=== PATIENT | female | born 1955 | race Caucasian/White ===

== ENCOUNTER 2016-12-19 11:58 | Emergency (ER) | payer OTHER ==
[~2016-12-19] VITALS: Ht 154.9 cm; Wt 80.5 kg
[~2016-12-19 11:58] MED LIST: escitalopram; ibuprofen; loratadine
[2016-12-19 12:00] VITALS: Ht 154.9 cm; Wt 80.5 kg
[2016-12-19] MEDS ORDERED: AZITHROMYCIN 250 MG TAB PO ONE (13:00)
[2016-12-19] MEDS ORDERED: ACETAMINOPHEN 325 MG TAB PO ONE (13:00)
--- NOTE | 2016-12-19 13:11 | RADRPT ---
PROCEDURE: Chest x-ray CLINICAL INDICATION: Cough TECHNIQUE: Chest single view COMPARISON: None FINDINGS: The heart is normal in size. The pulmonary vessels are normal in caliber. The lungs are clear. Th e costophrenic angles are sharp. The visualized bony thorax is unremarkable. IMPRESSION: No acute cardiopulmonary disease. RPTAT: HH .Yohan Payne MD, Date Time Electronically viewed and signed by .Yohan Payne MD, MD on 12/19/2016 13:10 .W/
[2016-12-19] MEDS ORDERED: ACET325T33 PO (13:37)
[2016-12-19] MEDS ORDERED: IBUP-1542 PO (13:37)
[2016-12-19] MEDS ORDERED: LOPE2CAP PO (13:37)
[2016-12-19] MEDS ORDERED: AZIT250T94 PO (13:37)
--- NOTE | 2016-12-19 14:24 | ERD ---
ER Documentation Chief Complaint Date/Time DATE: 12/19/16 TIME: 14:23 Chief Complaint fever ,cough, diarrhea leg cramps since yesterday HPI Patient is a 61-year-old female with no medical problems who presents with fever and cough. The patient said that her symptoms started yesterday. She also has vomiting and diarrhea. She feels cramps in her legs on both sides. She has had no treatment as of yet. Upon review of old medical records this is the patient's first visit to the emergency department. She does not remember the name of her primary doctor. ROS All systems reviewed and are negative except as per history of present illness. Medications Home Meds Active Scripts Ibuprofen* (Motrin*) 600 Mg Tab, 600 MG PO Q8, #30 TAB Prov:ISHAAN RODNEY MD 12/19/16 Acetaminophen* (Tylenol*) 325 Mg Tablet, 2 TAB PO Q8 Y for PAIN AND OR ELEVATED TEMP, #20 TAB Prov:ISHAAN RODNEY MD 12/19/16 Loperamide Hcl* (Imodium*) 2 Mg Capsule, 2 MG PO .AFTER EA LOOSE BM Y for DIARRHEA, #10 TAB Prov:ISHAAN RODNEY MD 12/19/16 Azithromycin* (Zithromax*) 250 Mg Tablet, 250 MG PO DAILY for 4 Days, TAB Prov:ISHAAN RODNEY MD 12/19/16 Reported Medications [ibuprofen] No Conflict Check 07/11/16 [loratadine] No Conflict Check 07/11/16 [escitalopram] No Conflict Check 07/11/16 Allergies Allergies: Coded Allergies: No Known Allergy (Unverified , 07/11/16) PMhx/Soc Medical and Surgical Hx: pt denies Medical Hx, pt denies Surgical Hx History of Surgery: No Anesthesia Reaction: No Hx Neurological Disorder: No Hx Respiratory Disorders: No Hx Cardiac Disorders: No Hx Psychiatric Problems: No Hx Miscellaneous Medical Probl: No Hx Alcohol Use: No Hx Substance Use: No Hx Tobacco Use: No Smoking Status: Never smoker FmHx Family History: No diabetes Physical Exam Vitals Vital Signs Date Time Temp Pulse Resp B/P Pulse Ox O2 Delivery O2 Flow Rate FiO2 12/19/16 12:00 101.7 98 18 140/81 98 Physical Exam Const: Mild distress Head: Atraumatic Eyes: Normal Conjunctiva ENT: Normal External Ears, Nose and Mouth. Neck: Full range of motion..~ No meningismus. Resp: Clear to auscultation bilaterally Cardio: Regular rate and rhythm, no murmurs Abd: Soft, non tender, non distended. Normal bowel sounds Skin: No petechiae or rashes Back: No midline or flank tenderness Ext: No cyanosis, or edema Neur: Awake and alert Psych: Normal Mood and Affect Results 24 hrs Current Medications Medications (Trade) Dose Ordered Sig/Earle Route PRN Reason Start Time Stop Time Status Last Admin Dose Admin Azithromycin (Zithromax) 500 mg ONCE ONCE PO 12/19/16 13:00 12/19/16 13:01 DC 12/19/16 12:41 Acetaminophen (Tylenol Tab) 650 mg ONCE ONCE PO 12/19/16 13:00 12/19/16 13:01 DC 12/19/16 12:40 Procedures/MDM Chest x-ray shows no obvious pneumonia per radiology. Patient is a 61-year-old female with no medical problems who presents with fever and cough. She also has vomiting and diarrhea. I believe she may have an acute bronchitis and I will treat her with 5 days of Zithromax. The first dose was given in the emergency department. The patient was given Tylenol for fever. She is otherwise well-appearing and well-hydrated. I doubt sepsis or bacteremia at this time. Patient will be discharged home but will need to follow-up closely with her doctor within 24-48 hours. She can return sooner for any worsening symptoms. Departure Diagnosis: Primary Impression: Bronchitis Additional Impression: Vomiting and diarrhea Condition: Fair Patient Instructions: Self-Care for Vomiting and Diarrhea, Bronchitis, Antiobiotic Treatment (Adult) Referrals: Your doctor Additional Instructions: Llame al doctor MAANA y jewels linnea VIVI PARA DENTRO DE 1-2 CROCKER.Dgale a la secretaria que nosotros le instruimos hacer esta vivi.Avise o llame si fletcher condicin se empeora antes de la vivi. Regresa aqui si peor o no mejor. ISHAAN RODNEY MD December 19, 2016 14:24
[2016-12-20] MEDS ORDERED: LORA10TA3 PO (23:02)
== END 2016-12-19 14:15 | disposition home or self-care (01) ==
LOC: FTE 11:58
DX: J20.9 Acute bronchitis, unspecified (principal); R11.10 Vomiting, unspecified; R19.7 Diarrhea, unspecified
CPT/HCPCS: 71010; Z7502; Z7610

== ENCOUNTER 2016-12-20 20:36 | Emergency (ER) | payer OTHER ==
[~2016-12-20] VITALS: Ht 152.4 cm; Wt 81.5 kg
[~2016-12-20 20:36] MED LIST changes: +ACET325T33 PO; +AZIT250T94 PO; +IBUP-1542 PO; +LOPE2CAP PO
[2016-12-20 21:18] VITALS: Ht 152.4 cm; Wt 81.5 kg
[2016-12-20] MEDS ORDERED: ONDANSETRON 4 MG INJ IV STA (22:26)
[2016-12-20] MEDS ORDERED: morphine 4 MG/ML VIAL IV STA (22:26)
[2016-12-20] MEDS ORDERED: SODIUM CHLORIDE 0.9% 1L BAG IV* STA (22:26)
[2016-12-20] MEDS ORDERED: PIPER-TAZO 3.375 GM IV (PMX) 100 ML IVPB STA (22:26)
[2016-12-20] MEDS ORDERED: ALBUTEROL 0.083% (NEB) 2.5 MG/3 ML AMP NEB STA (22:37)
[2016-12-20 22:52] LABS: ADD SCAN DIFF NO
[2016-12-20 22:57] LABS: BASOPHILS % 0.5 % (0.0-2.0); EOSINOPHILS # 0.2 10^3/ul (0.0-0.5); EOSINOPHILS % 2.6 % (0.0-7.0); HEMATOCRIT 43.1 % (37.0-47.0); HEMOGLOBIN 14.3 g/dl (12.0-16.0); LYMPHOCYTES # 1.2 10^3/ul (0.8-2.9); LYMPHOCYTES % 14.7 % (15.0-51.0); MEAN CORPUSCULAR HEMOGLOBIN 32.1 pg (29.0-33.0); MEAN CORPUSCULAR HGB CONC 33.2 g/dl (32.0-37.0); MEAN CORPUSCULAR VOLUME 96.6 fl (82.0-101.0); MEAN PLATELET VOLUME 11.6 fl (7.4-10.4); MONOCYTE # 0.8 10^3/ul (0.3-0.9); NEUTROPHIL # 5.6 10^3/ul (1.6-7.5); NEUTROPHILS % 71.9 % (39.0-77.0); PLATELET COUNT 181 10^3/UL (140-415); RED BLOOD COUNT 4.46 10^6/ul (4.20-5.40); RED CELL DISTRIBUTION WIDTH 13.5 % (11.5-14.5); WHITE BLOOD COUNT 7.8 10^3/ul (4.8-10.8)
[2016-12-20] MEDS ORDERED: DEXAMETHASONE 10 MG/ML 1 ML INJ IV ONE (23:00)
[2016-12-20] MEDS ORDERED: LORA10TA3 PO (23:02)
[2016-12-20 23:08] LABS: ADD UMIC YES; URINE BILIRUBIN (Dip) NEGATIVE (NEGATIVE); URINE BLOOD (Dip) 2+ (NEGATIVE); URINE COLOR LT. YELLOW (YELLOW); URINE GLUCOSE (Dip) NEGATIVE (NEGATIVE); URINE KETONES (Dip) NEGATIVE (NEGATIVE); URINE LEUKOCYTE ESTERASE (Dip) NEGATIVE (NEGATIVE); URINE NITRITE (Dip) NEGATIVE (NEGATIVE); URINE TOTAL PROTEIN (Dip) NEGATIVE (NEGATIVE); URINE UROBILINOGEN (Dip) 0.2 E.U./dL (0.1-1.0)
[2016-12-20 23:16] LABS: BACTERIA,URINE FEW; SQUAMOUS EPITHELIAL CELL,UR FEW
[2016-12-20 23:18] LABS: INR 1.03; PARTIAL THROMBOPLASTIN TIME 29.3 Sec (25.0-35.0); PROTIME 13.5 Sec (12.2-14.2); PT RATIO 1.1
[2016-12-20 23:21] LABS: ALANINE AMINOTRANSFERASE 123 IU/L (13-69); ALBUMIN 4.5 g/dl (3.3-4.9); ALBUMIN/GLOBULIN RATIO 1.36; ALKALINE PHOSPHATASE 65 IU/L (42-121); ANION GAP 12 (8-16); ASPARTATE AMINO TRANSFERASE 131 IU/L (15-46); BILIRUBIN,INDIRECT 0.4 mg/dl (0-1.1); BILIRUBIN,TOTAL 0.4 mg/dl (0.2-1.3); BLOOD UREA NITROGEN 10 mg/dl (7-20); CALCIUM 8.6 mg/dl (8.4-10.2); CARBON DIOXIDE 24 mmol/L (21-31); CHLORIDE 101 mmol/L (97-110); CREATININE 0.78 mg/dl (0.44-1.00); GLUCOSE 118 mg/dl (70-220); POTASSIUM 4.8 mmol/L (3.5-5.1); SODIUM 132 mmol/L (135-144); TOTAL PROTEIN 7.8 g/dl (6.1-8.1)
--- NOTE | 2016-12-20 23:41 | RADRPT ---
PROCEDURE: XR Chest. CLINICAL INDICATION: Chest pain. TECHNIQUE: Single frontal chest x-ray. COMPARISON: 12/19/2016 FINDINGS: The cardiomediastinal silhouette is unremarkable. There is no congestive heart failure.. There is h ypoventilation with minimal bibasilar atelectasis.. There is no pleural effusion. There is no pneu mothorax. The osseous structures are unremarkable. IMPRESSION: Hypoventilation with minimal bibasilar atelectasis. RPTAT: HMVK .Chip Smith MD, Date Time Electronically viewed and signed by .Chip Smith MD, on 12/20/2016 23:40 .K/
[2016-12-20 23:43] LABS: TROPONIN-I < 0.012 ng/ml (0.00-0.12)
[2016-12-20] MEDS ORDERED: ACETAMINOPHEN 500 MG TAB PO STA (23:56)
[2016-12-21] MEDS ORDERED: ALBUTEROL 0.083% (NEB) 2.5 MG/3 ML AMP HHN STA (00:31)
--- NOTE | 2016-12-21 00:48 | RADRPT ---
PROCEDURE: US Abdomen (right upper quadrant). CLINICAL INDICATION: Right upper quadrant pain TECHNIQUE: Multiple real-time longitudinal and transverse images of the right upper quadrant of th e abdomen were acquired utilizing a curved array transducer. Images were reviewed on a high-resoluti on PACS workstation. COMPARISON: None FINDINGS: The liver is slightly enlarged at 17.2 cm and mildly echogenic without focal mass. The gallbladder is normal. There is no pericholecystic fluid or gallbladder wall thickening or gallstones. No intr a or extrahepatic biliary dilatation is seen. The common bile duct measures 3.5 mm in maximal dimen fabrice. Pancreas obscured by bowel gas. No free fluid is identified. The right kidney measures 11.6 cm in length. There is normal echogenicity within the right kidney. There is no perinephric fluid collection. No hydronephrosis, mass, or calculus is seen. IMPRESSION: 1. Slightly enlarged fatty liver. 2. Pancreas obscured by bowel gas. 3. Otherwise unremarkable right upper quadrant ultrasound. RPTAT: HMVK .Chip Smith MD, Date Time Electronically viewed and signed by .Chip Smith MD, MD on 12/21/2016 00:47 .K/
[2016-12-21] MEDS ORDERED: AZITHROMYCIN 500MG/NS (PMX) 250 ML IVPB ONE (01:00)
[2016-12-21] MEDS ORDERED: UDROBDM PO (01:04)
[2016-12-21] MEDS ORDERED: ALBU8.5H3 INH (01:04)
[2016-12-21] MEDS ORDERED: PRED50TA PO (01:04)
[2016-12-21] MEDS ORDERED: ACET500C5 PO (01:06)
[2016-12-21] MEDS ORDERED: LIDOCAINE/MYLANTA 40 ML BTL PO STA (01:07)
[2016-12-21] MEDS ORDERED: FAMOTIDINE 20 MG TAB PO STA (01:07)
[2016-12-21 03:05] VITALS: BP 96/58; PULSE 89; RESP 20; TEMP 99.1
--- NOTE | 2016-12-21 06:09 | ERD ---
ER Documentation Chief Complaint Date/Time DATE: 12/21/16 TIME: 06:04 Chief Complaint ap pain, fever and pain down RLE HPI 61-year-old female with no significant past medical history presenting with cough, body aches, fevers, chills with associated upper abdominal pain radiating down her legs. She states that abdominal pain started after using ibuprofen for her fever. Yesterday she was here in the ED for similar complaints and was diagnosed with bronchitis and prescribed azithromycin. She was also given medications for her nausea and diarrhea which have helped with those symptoms. She continues to have fevers and chills. She is taking the azithromycin. ROS All systems reviewed and are negative except as per history of present illness. Medications Home Meds Active Scripts Acetaminophen* (Tylophen*) 500 Mg Capsule, 1 CAP PO Q6H Y for FEVER, #20 CAP Prov:PEBBLES ALDRIDGE MD 12/21/16 Prednisone* (Prednisone*) 50 Mg Tablet, 50 MG PO DAILY for 5 Days, TAB Prov:PEBBLES ALDRIDGE MD 12/21/16 Guaifenesin-Dextromethorphan* (Robitussin* DM) 100MG/10MG/5ML Syrup, 5 ML PO Q4H Y for COUGH for 3 Days, #60 ML Prov:PEBBLES ALDRIDGE MD 12/21/16 Albuterol Sulfate* (Proair HFA*) 8.5 Gm Hfa.aer.ad, 2 PUFF INH Q4H Y for WHEEZING AND SOB, #1 INHALER Prov:PEBBLES ALDRIDGE MD 12/21/16 Ibuprofen* (Motrin*) 600 Mg Tab, 600 MG PO Q8, #30 TAB Prov:ISHAAN RODNEY MD 12/19/16 Loperamide Hcl* (Imodium*) 2 Mg Capsule, 2 MG PO .AFTER EA LOOSE BM Y for DIARRHEA, #10 TAB Prov:ISHAAN RODNEY MD 12/19/16 Reported Medications Loratadine* (Loratadine*) 10 Mg Tablet, 10 MG PO DAILY, #30 TAB 12/20/16 Discontinued Reported Medications [ibuprofen] No Conflict Check 07/11/16 [loratadine] No Conflict Check 07/11/16 [escitalopram] No Conflict Check 07/11/16 Discontinued Scripts Acetaminophen* (Tylenol*) 325 Mg Tablet, 2 TAB PO Q8 Y for PAIN AND OR ELEVATED TEMP, #20 TAB Prov:ISHAAN RODNEY MD 12/19/16 Azithromycin* (Zithromax*) 250 Mg Tablet, 250 MG PO DAILY for 4 Days, TAB Prov:ISHAAN RODNEY MD 12/19/16 Allergies Allergies: Coded Allergies: No Known Allergy (Unverified , 12/20/16) PMhx/Soc History of Surgery: No Anesthesia Reaction: No Hx Neurological Disorder: No Hx Respiratory Disorders: No Hx Cardiac Disorders: No Hx Psychiatric Problems: No Hx Miscellaneous Medical Probl: Yes (BRONCHITIS) Hx Alcohol Use: No Hx Substance Use: No Hx Tobacco Use: No Smoking Status: Never smoker FmHx Family History: No diabetes Physical Exam Vitals Vital Signs Date Time Temp Pulse Resp B/P Pulse Ox O2 Delivery O2 Flow Rate FiO2 12/21/16 03:05 99.1 89 20 96/58 96 Room Air 12/21/16 01:06 100.4 102 93/66 12/21/16 00:47 95 22 94 21 12/20/16 23:06 102.3 98 20 112/77 96 Room Air 12/20/16 22:59 Non Rebreather 12/20/16 22:55 94 20 95 21 12/20/16 21:18 100.8 110 20 100/66 96 Physical Exam Const: Sickly appearing, nontoxic, no distress, frequent coughing on exam Head: Atraumatic Eyes: Normal Conjunctiva ENT: Normal External Ears, Nose and Mouth. Neck: Full range of motion..~ No meningismus. No JVD Resp: Diffuse expiratory wheezing, no rales or rhonchi Cardio: Tachycardic with regular rhythm, no murmurs Abd: Soft, mild epigastric and right upper quadrant tenderness, no rebound or guarding, non distended. Normal bowel sounds Skin: No petechiae or rashes Back: No midline or flank tenderness Ext: No cyanosis, or edema Neur: Awake and alert and oriented 3, cranial nerves intact, strength and sensations intact in all 4 extremities Psych: Normal Mood and Affect Result Diagram: 12/20/16222912/20/162229 Results 24 hrs Laboratory Tests Test 12/20/16 22:30 White Blood Count 7.810^3/ul Red Blood Count 4.4610^6/ul Hemoglobin 14.3g/dl Hematocrit 43.1% Mean Corpuscular Volume 96.6fl Mean Corpuscular Hemoglobin 32.1pg Mean Corpuscular Hemoglobin Concent 33.2g/dl Red Cell Distribution Width 13.5% Platelet Count 67718^3/UL Mean Platelet Volume 11.6fl Neutrophils % 71.9% Lymphocytes % 14.7% Monocytes % 10.0% Eosinophils % 2.6% Basophils % 0.5% Nucleated Red Blood Cells % 0.0/100WBC Neutrophils # 5.610^3/ul Lymphocytes # 1.210^3/ul Monocytes # 0.810^3/ul Eosinophils # 0.210^3/ul Basophils # 0.010^3/ul Nucleated Red Blood Cells # 0.010^3/ul Prothrombin Time 13.5Sec Prothrombin Time Ratio 1.1 INR International Normalized Ratio 1.03 Activated Partial Thromboplast Time 29.3Sec Urine Color LT. YELLOW Urine Clarity CLEAR Urine pH 5.5 Urine Specific [place] 1.020 Urine Ketones NEGATIVE Urine Nitrite NEGATIVE Urine Bilirubin NEGATIVE Urine Urobilinogen 0.2 E.U./dL Urine Leukocyte Esterase NEGATIVE Urine Microscopic RBC 10-25/HPF Urine Microscopic WBC NONE SEEN/HPF Urine Squamous Epithelial Cells FEW Urine Bacteria FEW Urine Hemoglobin 2+ Urine Glucose NEGATIVE% Urine Total Protein NEGATIVE Sodium Level 132mmol/L Potassium Level 4.8mmol/L Chloride Level 101mmol/L Carbon Dioxide Level 24mmol/L Anion Gap 12 Blood Urea Nitrogen 10mg/dl Creatinine 0.78mg/dl Glucose Level 118mg/dl Lactic Acid Level 1.6mmol/L Calcium Level 8.6mg/dl Total Bilirubin 0.4mg/dl Direct Bilirubin 0.00mg/dl Indirect Bilirubin 0.4mg/dl Aspartate Amino Transf (AST/SGOT) 131IU/L Alanine Aminotransferase (ALT/SGPT) 123IU/L Alkaline Phosphatase 65IU/L Troponin I < 0.012ng/ml Total Protein 7.8g/dl Albumin 4.5g/dl Globulin 3.30g/dl Albumin/Globulin Ratio 1.36 Lipase 107U/L Current Medications Medications (Trade) Dose Ordered Sig/Earle Route PRN Reason Start Time Stop Time Status Last Admin Dose Admin Morphine Sulfate (morphine) 4 mg ONCE STAT IV 12/20/16 22:26 6/1/17 22:28 DC 12/20/16 22:45 Ondansetron HCl (Zofran Inj) 4 mg ONCE STAT IV 12/20/16 22:26 12/20/16 22:28 DC 12/20/16 22:44 Sodium Chloride 2530 ml 2,530 ml BOLUS OVER 2 HOURS STAT IV* 12/20/16 22:26 12/20/16 22:28 DC 12/20/16 22:46 Piperacillin Sod/ Tazobactam Sod (Zosyn 3.375gm/ 100 ml (Pmx)) 100 ml @ 200 mls/hr ONCE STAT IVPB 12/20/16 22:26 12/20/16 22:55 DC 12/20/16 22:45 Dexamethasone (Decadron) 10 mg ONCE ONCE IV 12/20/16 23:00 12/20/16 23:01 DC 12/20/16 22:44 Albuterol (Proventil 0.083% (Neb)) 5 mg ONCE STAT NEB 12/20/16 22:37 12/20/16 22:38 DC 12/20/16 22:56 Acetaminophen 1000 mg 1,000 mg ONCE STAT PO 12/20/16 23:56 12/20/16 23:57 DC 12/21/16 00:06 Azithromycin (Zithromax 500mg/ NS (Pmx)) 250 ml @ 250 mls/hr ONCE ONCE IVPB 12/21/16 01:00 12/21/16 01:59 DC 12/21/16 01:00 Albuterol (Proventil 0.083% (Neb)) 5 mg ONCE STAT HHN 12/21/16 00:31 12/21/16 00:32 DC 12/21/16 00:47 Famotidine (Pepcid) 20 mg ONCE STAT PO 12/21/16 01:07 12/21/16 01:09 DC 12/21/16 01:32 Miscellaneous Medication (Gi Cocktail (2)) 40 ml ONCE STAT PO 12/21/16 01:07 12/21/16 01:09 DC 12/21/16 01:32 Procedures/MDM EKG: Rate/Rhythm: Normal Sinus Rhythm QRS, ST, T-waves: No changes consistent w/ acute ischemia Impression: No evidence of ischemia or arrhythmia Labs: No significant abnormalities, lactate normal Blood cultures pending Chest x-ray shows no acute abnormalities MDM: Patient is presenting with coughing and wheezing consistent with bronchitis. Chest x-ray did not show evidence of pneumonia. I have a low suspicion for CHF. Vitals were notable for tachycardia and fever. Sepsis workup was started. 30 cc/kg of IV fluids was given. Azithromycin was given IV. She started to improve with multiple albuterol breathing treatments. A dose of steroids was given here IV. Her labs were notable for mild transaminitis, so right upper quadrant ultrasound was ordered and was normal without evidence of biliary obstruction or acute cholecystitis. With regard to her epigastric pain , this is likely secondary to NSAID induced gastritis. patient's symptoms improved and I believe she is stable for discharge at this time. I advised she continue to azithromycin and prescribed her Tylenol instead of ibuprofen for her fevers. I also gave her prescription for 5 days of prednisone and albuterol MDI to use as needed. Return precautions were given. She was advised to follow-up with her primary care doctor within the next 2 days. Departure Diagnosis: Primary Impression: Bronchitis with bronchospasm Condition: Stable Patient Instructions: Bronchitis, Antiobiotic Treatment (Adult) [facility]errals[facility] Usted se foley hecho un examen mdico de control que le indica que no est en linnea condicin que requiera tratamiento urgente en el Departamento de Emergencia. Un estudio ms profundo y el tratamiento de fletcher condicin pueden esperar sin ningn riesgo hasta que usted sea atendida/o en el consultorio de fletcher mdico o linnea cl luis daniel. Es responsabilidad suya arreglar linnea ilia para el seguimiento del phillip. MANEJO DE CONDICIONES NO URGENTES EN EL FUTURO 1) Si usted tiene un mdico de atencin primaria: Usted debera llamar a fletcher mdico de atencin primaria antes de venir al departamento de emergencia. Despus de las horas de consultorio, fletcher doctor o fletcher asociado/a est disponible por telfono. El mdico o enfermero de jeremie en el servicio telefnico puede asesorarle por andrew medio para atender el problema, o phillip contrario se puede programar linnea ilia. 2) Si usted no tiene un mdico de atencin primaria: Llame al mdico o clnica de referencia que aparece abajo ac las horas de consultorio para hacer linnea ilia para que le vean. CLINICAS: [facility] [phone] [id number] [facility] [phone] [facility] [phone] [facility]. [place] [id number] [phone] [facility]. [facility] [phone] [address] [facility] [phone] [address] Additional Instructions: Regrese a la ayo de emergencias si jose sintomas estan empeorando. Toña todo medicinas, incluyendo el antibiotico. No toña ibuprofina. Solamente toña acetaminophena para fiebres. PEBBLES ALDRIDGE MD Dec 21, 2016 06:09
== END 2016-12-21 03:10 | disposition home or self-care (01) ==
LOC: E/R 20:36
DX: J20.9 Acute bronchitis, unspecified (principal); R11.0 Nausea; R05 Cough
CPT/HCPCS: 71010; 76705; 80053; 81001; 83605; 83690; 84484; 85025; 85610; 85730; 87040; 87086; 94640; 94664; J0456; J1100; J2270; J2405; J2543; J7030; Z7610; 36415; 96374; 96375

== ENCOUNTER 2017-01-06 19:13 | Emergency (ER) | payer OTHER ==
[~2017-01-06] VITALS: Wt 81.0 kg
[~2017-01-06 19:13] MED LIST changes: -ACET325T33 PO; +ACET500C5 PO; +ALBU8.5H3 INH; -AZIT250T94 PO; +LORA10TA3 PO; +PRED50TA PO; +UDROBDM PO; -escitalopram; -ibuprofen; -loratadine
[2017-01-06] MEDS ORDERED: morphine 4 MG/ML VIAL IV STA (20:45)
[2017-01-06] MEDS ORDERED: ONDANSETRON 4 MG INJ IV STA (20:45)
[2017-01-06] MEDS ORDERED: SOD CHLORIDE 0.9% 500 ML IV STA (20:45)
--- NOTE | 2017-01-06 21:00 | RADRPT ---
PROCEDURE: XR Chest. CLINICAL INDICATION: Abdominal pain. TECHNIQUE: Single frontal view. COMPARISON: 12/20/2016. FINDINGS: The lungs are clear. The heart size is normal. There is no pleural effusion. There is no pneumothorax. IMPRESSION: 1. Normal chest radiograph. 2. No significant change from 12/20/2016. RPTAT: QQ .Suman Vaughan MD, MD Date Time Electronically viewed and signed by .Sumna Vaughan MD, MD on 01/06/2017 20:59 .R/
[2017-01-06 21:23] LABS: ADD SCAN DIFF NO
[2017-01-06 21:24] LABS: BASOPHIL # 0.1 10^3/ul (0.0-0.1); BASOPHILS % 0.8 % (0.0-2.0); EOSINOPHILS # 0.3 10^3/ul (0.0-0.5); EOSINOPHILS % 2.4 % (0.0-7.0); HEMATOCRIT 39.3 % (37.0-47.0); HEMOGLOBIN 13.6 g/dl (12.0-16.0); MEAN CORPUSCULAR HEMOGLOBIN 33.3 pg (29.0-33.0); MEAN CORPUSCULAR HGB CONC 34.6 g/dl (32.0-37.0); MEAN CORPUSCULAR VOLUME 96.1 fl (82.0-101.0); MEAN PLATELET VOLUME 9.8 fl (7.4-10.4); MONOCYTE # 0.9 10^3/ul (0.3-0.9); NEUTROPHIL # 6.2 10^3/ul (1.6-7.5); NEUTROPHILS % 58.4 % (39.0-77.0); PLATELET COUNT 338 10^3/UL (140-415); RED BLOOD COUNT 4.09 10^6/ul (4.20-5.40); WHITE BLOOD COUNT 10.5 10^3/ul (4.8-10.8)
[2017-01-06 21:27] LABS: ADD UMIC YES; UR BILIRUBIN (Dip) NEGATIVE (NEGATIVE); UR BLOOD (Dip) TRACE (NEGATIVE); UR CLARITY CLEAR (CLEAR); UR COLOR LT. YELLOW (YELLOW); UR GLUCOSE (Dip) NEGATIVE (NEGATIVE); UR KETONES (Dip) NEGATIVE (NEGATIVE); UR LEUKOCYTE ESTERASE (Dip) NEGATIVE (NEGATIVE); UR NITRITE (Dip) NEGATIVE (NEGATIVE); UR TOTAL PROTEIN (Dip) NEGATIVE (NEGATIVE); UR UROBILINOGEN (Dip) 0.2 E.U./dL (0.1-1.0)
[2017-01-06] MEDS ORDERED: HYDROCODONE/HOMATROPINE 5ML CUP PO SCH (21:30)
[2017-01-06 21:41] LABS: URINE RBCS 0-2 /HPF (0)
[2017-01-06 21:54] LABS: ALANINE AMINOTRANSFERASE 60 IU/L (13-69); ALBUMIN 4.3 g/dl (3.3-4.9); ALBUMIN/GLOBULIN RATIO 1.59; ALKALINE PHOSPHATASE 83 IU/L (42-121); ANION GAP 12 (8-16); ASPARTATE AMINO TRANSFERASE 48 IU/L (15-46); BILIRUBIN,INDIRECT 0.3 mg/dl (0-1.1); BILIRUBIN,TOTAL 0.3 mg/dl (0.2-1.3); BLOOD UREA NITROGEN 8 mg/dl (7-20); CALCIUM 9.2 mg/dl (8.4-10.2); CARBON DIOXIDE 20 mmol/L (21-31); CHLORIDE 110 mmol/L (97-110); CREATININE 0.74 mg/dl (0.44-1.00); GLUCOSE 87 mg/dl (70-220); POTASSIUM 4.2 mmol/L (3.5-5.1); SODIUM 138 mmol/L (135-144)
--- NOTE | 2017-01-06 21:57 | RADRPT ---
PROCEDURE: CT abdomen and pelvis without intravenous contrast. CLINICAL INDICATION: Pain. TECHNIQUE: CT of the abdomen/pelvis was performed utilizing axial images with reconstructions in s agittal and coronal planes. The administered radiation dose is CTDI 17 mGy, DLP 965 mGy-cm. COMPARISON: No pertinent prior examinations were submitted for comparison. FINDINGS: Visualized Chest: The visualized lung bases are clear. Abdomen: The spleen, pancreas, gallbladder,and adrenal glands are unremarkable. The liver is markedly, dif fusely decreased in attenuation, compatible with hepatic steatosis. There is some motion artifact wh ich limits evaluation of the mid abdomen. The kidneys are without hydronephrosis. No definite urinary calculi are seen. There is no evidence of bowel obstruction. The appendix is normal. No intra-abdominal free air is seen. There is no evidence of intra-abdominal adenopathy or free fluid. Pelvis: There is a calcified fibroid within the uterine fundus on the right. The ovaries are not seen. The re is no pelvic adenopathy or free fluid. The urinary bladder is unremarkable. Osseous structures: Unremarkable. IMPRESSION: No acute findings. Marked hepatic steatosis. Uterine fibroid. RPTAT: HIKT .Juliocesar Servin MD, MD Date Time Electronically viewed and signed by .Juliocesar Servin MD, on 01/06/2017 21:57 .T/
[2017-01-06 22:13] VITALS: BP 107/74; PULSE 74; RESP 18
[2017-01-06 22:13] LABS: TROPONIN-I < 0.012 ng/ml (0.00-0.12)
--- NOTE | 2017-01-06 22:28 | ERD ---
ER Documentation Chief Complaint Date/Time DATE: 01/06/17 TIME: 22:26 Chief Complaint abdominal pain/vomiting/diarrhea x 2 weeks HPI There is a 61-year-old female comes in with complaints of cough abdominal pain vomiting and diarrhea for 2 weeks patient says started initially with a cough which is mildly productive of yellow sputum. Since then she developed abdominal pain that is mild in intensity but is associated with 2-3 episodes of loose stool per day. No blood in stool. Mild vomiting, only noted after severe posttussive episode. No fevers no chills. Nonbilious vomiting. No other current complaints. No sick contacts. ROS All systems reviewed and are negative except as per history of present illness. Medications Home Meds Active Scripts Acetaminophen* (Tylophen*) 500 Mg Capsule, 1 CAP PO Q6H Y for FEVER, #20 CAP Prov:PEBBLES ALDRIDGE MD 12/21/16 Prednisone* (Prednisone*) 50 Mg Tablet, 50 MG PO DAILY for 5 Days, TAB Prov:PEBBLES ALDRIDGE MD 12/21/16 Guaifenesin-Dextromethorphan* (Robitussin* DM) 100MG/10MG/5ML Syrup, 5 ML PO Q4H Y for COUGH for 3 Days, #60 ML Prov:PEBBLES ALDRIDGE MD 12/21/16 Albuterol Sulfate* (Proair HFA*) 8.5 Gm Hfa.aer.ad, 2 PUFF INH Q4H Y for WHEEZING AND SOB, #1 INHALER Prov:PEBBLES ALDRIDGE MD 12/21/16 Ibuprofen* (Motrin*) 600 Mg Tab, 600 MG PO Q8, #30 TAB Prov:ISHAAN RODNEY MD 12/19/16 Loperamide Hcl* (Imodium*) 2 Mg Capsule, 2 MG PO .AFTER EA LOOSE BM Y for DIARRHEA, #10 TAB Prov:ISHAAN RODNEY MD 12/19/16 Reported Medications Loratadine* (Loratadine*) 10 Mg Tablet, 10 MG PO DAILY, #30 TAB 12/20/16 Allergies Allergies: Coded Allergies: No Known Allergy (Unverified , 01/06/17) PMhx/Soc History of Surgery: No Anesthesia Reaction: No Hx Neurological Disorder: No Hx Respiratory Disorders: Yes (asthma,bronchitis) Hx Cardiac Disorders: No Hx Psychiatric Problems: No Hx Miscellaneous Medical Probl: No Hx Alcohol Use: No Hx Substance Use: No Hx Tobacco Use: No Smoking Status: Never smoker Physical Exam Vitals Vital Signs Date Time Temp Pulse Resp B/P Pulse Ox O2 Delivery O2 Flow Rate FiO2 01/06/17 22:13 74 18 107/74 99 Room Air 01/06/17 19:17 98.6 82 20 129/75 100 Physical Exam Const: [] Head: Atraumatic Eyes: Normal Conjunctiva ENT: Normal External Ears, Nose and Mouth. Neck: Full range of motion..~ No meningismus. Resp: Clear to auscultation bilaterally Cardio: Regular rate and rhythm, no murmurs Abd: Soft, non tender, non distended. Normal bowel sounds Skin: No petechiae or rashes Back: No midline or flank tenderness Ext: No cyanosis, or edema Neur: Awake and alert Psych: Normal Mood and Affect Result Diagram: 01/06/17 2100 01/06/17 2100 Results 24 hrs Laboratory Tests Test 01/06/17 20:30 01/06/17 21:00 Urine Color LT. YELLOW Urine Clarity CLEAR Urine pH 5.5 Urine Specific [place] <=1.005 Urine Ketones NEGATIVE Urine Nitrite NEGATIVE Urine Bilirubin NEGATIVE Urine Urobilinogen 0.2 E.U./dL Urine Leukocyte Esterase NEGATIVE Urine Microscopic RBC 0-2/HPF Urine Microscopic WBC 0-2/HPF Urine Epithelial Cells RARE Urine Hemoglobin TRACE Urine Glucose NEGATIVE% Urine Total Protein NEGATIVE White Blood Count 10.510^3/ul Red Blood Count 4.0910^6/ul Hemoglobin 13.6g/dl Hematocrit 39.3% Mean Corpuscular Volume 96.1fl Mean Corpuscular Hemoglobin 33.3pg Mean Corpuscular Hemoglobin Concent 34.6g/dl Red Cell Distribution Width 13.0% Platelet Count 70045^3/UL Mean Platelet Volume 9.8fl Neutrophils % 58.4% Lymphocytes % 29.0% Monocytes % 9.0% Eosinophils % 2.4% Basophils % 0.8% Nucleated Red Blood Cells % 0.0/100WBC Neutrophils # 6.210^3/ul Lymphocytes # 3.010^3/ul Monocytes # 0.910^3/ul Eosinophils # 0.310^3/ul Basophils # 0.110^3/ul Nucleated Red Blood Cells # 0.010^3/ul Sodium Level 138mmol/L Potassium Level 4.2mmol/L Chloride Level 110mmol/L Carbon Dioxide Level 20mmol/L Anion Gap 12 Blood Urea Nitrogen 8mg/dl Creatinine 0.74mg/dl Glucose Level 87mg/dl Lactic Acid Level 1.0mmol/L Calcium Level 9.2mg/dl Total Bilirubin 0.3mg/dl Direct Bilirubin 0.00mg/dl Indirect Bilirubin 0.3mg/dl Aspartate Amino Transf (AST/SGOT) 48IU/L Alanine Aminotransferase (ALT/SGPT) 60IU/L Alkaline Phosphatase 83IU/L Troponin I < 0.012ng/ml Total Protein 7.0g/dl Albumin 4.3g/dl Globulin 2.70g/dl Albumin/Globulin Ratio 1.59 Lipase 185U/L Current Medications Medications (Trade) Dose Ordered Sig/Earle Route PRN Reason Start Time Stop Time Status Last Admin Dose Admin Sodium Chloride (NS) 500 ml @ 500 mls/hr Q1H STAT IV 01/06/17 20:45 01/06/17 21:44 DC 01/06/17 21:28 Morphine Sulfate (morphine) 4 mg ONCE STAT IV 01/06/17 20:45 01/06/17 20:46 DC 01/06/17 21:28 Ondansetron HCl (Zofran Inj) 4 mg ONCE STAT IV 01/06/17 20:45 01/06/17 20:46 DC 01/06/17 21:27 Hydrocodone Bit/ Homatropine Methylb (Hycodan Liquid) 5 ml ONCE PO 01/06/17 21:30 01/06/17 23:59 01/06/17 21:23 Procedures/MDM EKG: Rate/Rhythm: [Normal Sinus Rhythm] QRS, ST, T-waves: [No changes consistent w/ acute ischemia] Impression: [No evidence of ischemia or arrhythmia] Chest X-ray 1V Interpreted by me: Soft Tissue: No acute abnormalities Bones: No acute abnormalities Mediastinum/Cardiac Silhouette/Lungs: [No acute abnormalities] Medical decision-making: Patient is symptomology consistent with acute bronchitis. Abdominal CT is negative along with serial negative abdominal exams. At this point clinically stable for outpatient management. Patient will be discharged home. Follow with PCP. Follow-up in 8 hours for serial abdominal exams. Discharge home with azithromycin, prednisone, albuterol Departure Diagnosis: Primary Impression: Bronchitis Additional Impression: Abdominal pain Abdominal location: generalized Qualified Code: R10.84 - Generalized abdominal pain Condition: Stable NASEEM DAVISON Jan 06, 2017 22:28
[2017-01-06] MEDS ORDERED: ALBU18HF INHALATION (22:32)
[2017-01-06] MEDS ORDERED: PRED20TA PO (22:32)
[2017-01-06] MEDS ORDERED: AZIT250T94 PO (22:32)
== END 2017-01-06 22:45 | disposition home or self-care (01) ==
LOC: FTE 19:13 → E/R 22:45
DX: J20.9 Acute bronchitis, unspecified (principal); R11.10 Vomiting, unspecified; R40.2142 Coma scale, eyes open, spontaneous, at arrival to emergency department; R40.2252 Coma scale, best verbal response, oriented, at arrival to emergency department; R40.2362 Coma scale, best motor response, obeys commands, at arrival to emergency department; R10.84 Generalized abdominal pain
CPT/HCPCS: 36415; 71010; 74176; 80053; 81001; 83605; 83690; 84484; 85025; 93005; 96374; 96375; J2270; J2405; J7040; Z7502; Z7610

== ENCOUNTER 2017-02-22 18:29 | Emergency (ER) | payer OTHER ==
[~2017-02-22] VITALS: Ht 157.5 cm; Wt 80.0 kg
[~2017-02-22 18:29] MED LIST changes: +ALBU18HF INHALATION; +AZIT250T94 PO; +PRED20TA PO
[2017-02-22 18:59] VITALS: Ht 157.5 cm; Wt 80.0 kg
[2017-02-22] MEDS ORDERED: FAMOTIDINE 20 MG TAB PO ONE (20:00)
[2017-02-22] MEDS ORDERED: IBUPROFEN 600 MG TAB PO ONE (20:00)
--- NOTE | 2017-02-22 20:55 | RADRPT ---
PROCEDURE: XR Chest. CLINICAL INDICATION: Cough. TECHNIQUE: Single frontal view of the chest. COMPARISON: 12/19/2016. FINDINGS: Mild prominent cardiac silhouette. Mild elevation right hemidiaphragm. Mild pulmonary vascular con gestion is new. Slight atelectasis versus airspace disease at the left lung base. No signs of pleur al fluid or pneumothorax are seen. The osseous structures and soft tissues are unremarkable. IMPRESSION: Mild pulmonary vascular ingestion with slight atelectasis versus airspace disease at the left lung b ase. RPTAT: [facility] Physician Gavin Date Time Electronically viewed and signed by Physician Gavin on 02/22/2017 20:55 RS/
[2017-02-22] MEDS ORDERED: CEFTRIAXONE 1 GM INJ IM ONE (21:30)
[2017-02-22] MEDS ORDERED: LIDOCAINE 2% (MDV) 20 ML INJ INJ ONE (21:30)
[2017-02-22] MEDS ORDERED: OMEP20CA16 PO (21:32)
[2017-02-22] MEDS ORDERED: AZIT250T94 PO (21:32)
[2017-02-22] MEDS ORDERED: FEXO180T61 PO (21:33)
--- NOTE | 2017-02-22 22:00 | ERD ---
ER Documentation Chief Complaint Date/Time DATE: 02/22/17 TIME: 21:55 Chief Complaint cough, sore throat, left rib pain, back pain HPI This is a 61-year-old female presents to the ER with multiple complaints. Patient states that over the last 2 months she has had a cough that is now began to become productive. Patient states that she feels chest pain and shortness of breath whenever she is coughing. Patient also complaining of upper back pain while coughing. Patient also complains of headache that is throbbing in quality and worse when she coughs. She admits to fever. Patient denies any hemoptysis. Patient was diagnosed with bronchitis in the past, however she states she never got better. Patient has a past medical history of GERD, however does not take any medication. ROS 12 point review of systems was done, all negative except per HPI. Medications Home Meds Active Scripts Fexofenadine Hcl* (Ayleen*) 180 Mg Tablet, 180 MG PO DAILY, #30 TAB Prov:NIKI GARCIA 02/22/17 Omeprazole* (Omeprazole*) 20 Mg Capsule.dr, 20 MG PO BID, #20 Prov:NIKI GARCIA 02/22/17 Azithromycin* (Zithromax*) 250 Mg Tablet, 250 MG PO .ZPACK DIRECTED, #6 TAB TAKE 500 MG (2 TABS) THE FIRST DAY THEN 250 MG (1 TAB) DAYS 2-5 Prov:NIKI GARCIA 02/22/17 Albuterol Sulfate* (Ventolin HFA*) 18 Gm Hfa.aer.ad, 2 PUFF INHALATION Q4H, #1 INHALER Prov:NASEEM DAVISON 01/06/17 Prednisone* (Prednisone*) 20 Mg Tab, 40 MG PO DAILY for 4 Days, TAB Prov:NASEEM DAVISON 01/06/17 Azithromycin* (Zithromax*) 250 Mg Tablet, 250 MG PO .ZPACK DIRECTED, #6 TAB TAKE 500 MG (2 TABS) THE FIRST DAY THEN 250 MG (1 TAB) DAYS 2-5 Prov:NASEEM DAVISON 01/06/17 Acetaminophen* (Tylophen*) 500 Mg Capsule, 1 CAP PO Q6H Y for FEVER, #20 CAP Prov:PEBBLES ALDRIDGE MD 12/21/16 Prednisone* (Prednisone*) 50 Mg Tablet, 50 MG PO DAILY for 5 Days, TAB Prov:PEBBLES ALDRIDGE MD 12/21/16 Guaifenesin-Dextromethorphan* (Robitussin* DM) 100MG/10MG/5ML Syrup, 5 ML PO Q4H Y for COUGH for 3 Days, #60 ML Prov:PEBBLES ALDRIDGE MD 12/21/16 Albuterol Sulfate* (Proair HFA*) 8.5 Gm Hfa.aer.ad, 2 PUFF INH Q4H Y for WHEEZING AND SOB, #1 INHALER Prov:PEBBLES ALDRIDGE MD 12/21/16 Ibuprofen* (Motrin*) 600 Mg Tab, 600 MG PO Q8, #30 TAB Prov:ISHAAN RODNEY MD 12/19/16 Loperamide Hcl* (Imodium*) 2 Mg Capsule, 2 MG PO .AFTER EA LOOSE BM Y for DIARRHEA, #10 TAB Prov:ISHAAN RODNEY MD 12/19/16 Reported Medications Loratadine* (Loratadine*) 10 Mg Tablet, 10 MG PO DAILY, #30 TAB 12/20/16 Allergies Allergies: Coded Allergies: No Known Allergy (Unverified , 02/22/17) PMhx/Soc Medical and Surgical Hx: pt denies Surgical Hx History of Surgery: No Anesthesia Reaction: No Hx Neurological Disorder: No Hx Respiratory Disorders: Yes (asthma,bronchitis) Hx Cardiac Disorders: No Hx Psychiatric Problems: No Hx Miscellaneous Medical Probl: No Hx Alcohol Use: No Hx Substance Use: No Hx Tobacco Use: No Smoking Status: Never smoker Physical Exam Vitals Vital Signs Date Time Temp Pulse Resp B/P Pulse Ox O2 Delivery O2 Flow Rate FiO2 02/22/17 18:59 97.8 86 20 143/88 99 Physical Exam GENERAL: The patient is well-developed, well-nourished, in no acute distress. NECK: Cervical spine is non tender with no step off. Supple, no nuchal rigidity HEENT: Atraumatic. Pupils equal, round and reactive to light. Extraocular muscles are grossly intact. Conjunctivae pink, no discharge. Bilateral tympanic membranes are clear with no evidence of erythema, effusion or dulling of the light reflex. Tonsilar erythema with no exudates or uvular deviation. Clear rhinorrhea. RESPIRATORY: Clear to auscultation bilaterally. There are no rales, wheezes or rhonchi. HEART: Regular rate and rhythm. No murmurs, clicks, rubs or gallops. EXTREMITIES: No clubbing or cyanosis. Full range of motion. Grossly neurovascularly intact. NEUROLOGIC: Alert and oriented. Cranial nerves II through XII are intact. SKIN: There is no rash. The skin is warm and dry. Results 24 hrs Current Medications Medications (Trade) Dose Ordered Sig/Earle Route PRN Reason Start Time Stop Time Status Last Admin Dose Admin Ibuprofen (Motrin) 600 mg ONCE ONCE PO 02/22/17 20:00 02/22/17 20:01 DC 02/22/17 20:18 Famotidine (Pepcid) 20 mg ONCE ONCE PO 02/22/17 20:00 02/22/17 20:01 DC 02/22/17 20:18 Ceftriaxone Sodium (Rocephin) 1 gm ONCE ONCE IM 02/22/17 21:30 02/22/17 21:31 DC 02/22/17 21:23 Lidocaine (Xylocaine 2% (Mdv) 20 ml) 20 ml ONCE ONCE INJ 02/22/17 21:30 02/22/17 21:31 DC 02/22/17 21:23 [place] [id number] Rad[address] Main Line: [phone] DIAGNOSTIC IMAGING REPORT Patient: ALTAGRACIA REED : 1955 Age: 61 Sex: F MR #: [id number] DOS: 02/22/17 0000 Ordering MD: NIKI GARCIA PA-C Location: [facility] Room/Bed: PROCEDURE: XR Chest. CLINICAL INDICATION: Cough. TECHNIQUE: Single frontal view of the chest. COMPARISON: 12/19/2016. FINDINGS: Mild prominent cardiac silhouette. Mild elevation right hemidiaphragm. Mild pulmonary vascular congestion is new. Slight atelectasis versus airspace disease at the left lung base. No signs of pleural fluid or pneumothorax are seen. The osseous structures and soft tissues are unremarkable. IMPRESSION: Mild pulmonary vascular ingestion with slight atelectasis versus airspace disease at the left lung base. RPTAT: [facility] Physician Gavin Date Time Electronically viewed and signed by Kg Martinez Physician on 02/22/2017 20:55 RS/ CC: NIKI GARCIA Procedures/MDM EKG 75bpm no ST elevation no t wave inversion. EKG was read by Dr. Ayala Differential diagnosis includes but is not limited to; Viral URI, allergic rhinitis, bronchitis, pertussis,pneumonia. Patient has been to the ER 2 different times for this cough, and there was some evidence of probable disease in the lung. Patient was given a shot of Rocephin without any complications. She will be sent home with azithromycin, Ayleen, omeprazole. Suspicion for acute myocardial infarction is low as EKG is normal and patient's chest pain is associated with her cough, patient has also had these symptoms for the last 2 months. Patient is to follow-up with her primary care doctor and see a printed circuit board layout designer as soon as possible for further imaging and testing. Plan was discussed with patient they understand and agree. Patient needs to follow up with PCP in 1-2 days or return to ER sooner if symptoms worsen. Departure Diagnosis: Primary Impression: Cough Condition: Stable Patient Instructions: Cough, Chronic, Uncertain Cause, (Adult) Additional Instructions: Call your primary care doctor TOMORROW for an appointment during the next 1-2 days.See the doctor sooner or return here if your condition worsens before your appointment time. NIKI GARCIA Feb 22, 2017 22:00
== END 2017-02-22 21:44 | disposition home or self-care (01) ==
LOC: FTE 18:29
DX: R05 Cough (principal); J45.909 Unspecified asthma, uncomplicated; R07.9 Chest pain, unspecified
CPT/HCPCS: 71010; 93005; 96372; J0696; Z7502; Z7610

== ENCOUNTER 2017-05-27 15:35 | Emergency (ER) | payer OTHER ==
[~2017-05-27] VITALS: Ht 154.9 cm; Wt 83.0 kg
[~2017-05-27 15:35] MED LIST changes: +FEXO180T61 PO; +OMEP20CA16 PO
[2017-05-27 15:39] VITALS: Ht 154.9 cm; Wt 83.0 kg
--- NOTE | 2017-05-27 19:14 | ERD ---
ER Documentation Chief Complaint Chief Complaint RT EYE SWELLING /PAIN SINCE SATURDAY HPI This patient is a 61-year-old nondiabetic female who presents with bilateral periorbital swelling worse on the right side that she has had for 3 days. She has had this problem in the past before and is resolved on its own. She also has URI symptoms including cough and congestion. She saw her primary care doctor who told her to come to the emergency room to make sure she does not have glaucoma. She wears glasses but she does not have the glasses here today. She denies any visual changes and states her vision is the same in both eyes as normal. No nausea or vomiting. ROS All systems reviewed and are negative except as per history of present illness. Medications Home Meds Active Scripts Fexofenadine Hcl* (Ayleen*) 180 Mg Tablet, 180 MG PO DAILY, #30 TAB Prov:NIKI GARCIA 02/22/17 Omeprazole* (Omeprazole*) 20 Mg Capsule.dr, 20 MG PO BID, #20 Prov:NIKI GARCIA 02/22/17 Azithromycin* (Zithromax*) 250 Mg Tablet, 250 MG PO .ZPACK DIRECTED, #6 TAB TAKE 500 MG (2 TABS) THE FIRST DAY THEN 250 MG (1 TAB) DAYS 2-5 Prov:NIKI GARCIA 02/22/17 Albuterol Sulfate* (Ventolin HFA*) 18 Gm Hfa.aer.ad, 2 PUFF INHALATION Q4H, #1 INHALER Prov:NASEEM DAVISON 01/06/17 Prednisone* (Prednisone*) 20 Mg Tab, 40 MG PO DAILY for 4 Days, TAB Prov:NASEEM DAVISON 01/06/17 Azithromycin* (Zithromax*) 250 Mg Tablet, 250 MG PO .ZPACK DIRECTED, #6 TAB TAKE 500 MG (2 TABS) THE FIRST DAY THEN 250 MG (1 TAB) DAYS 2-5 Prov:NASEEM DAVISON 01/06/17 Acetaminophen* (Tylophen*) 500 Mg Capsule, 1 CAP PO Q6H Y for FEVER, #20 CAP Prov:PEBBLES ALDRIDGE MD 12/21/16 Prednisone* (Prednisone*) 50 Mg Tablet, 50 MG PO DAILY for 5 Days, TAB Prov:PEBBLES ALDRIDGE MD 12/21/16 Guaifenesin-Dextromethorphan* (Robitussin* DM) 100MG/10MG/5ML Syrup, 5 ML PO Q4H Y for COUGH for 3 Days, #60 ML Prov:PEBBLES ALDRIDGE MD 12/21/16 Albuterol Sulfate* (Proair HFA*) 8.5 Gm Hfa.aer.ad, 2 PUFF INH Q4H Y for WHEEZING AND SOB, #1 INHALER Prov:PEBBLES ALDRIDGE MD 12/21/16 Ibuprofen* (Motrin*) 600 Mg Tab, 600 MG PO Q8, #30 TAB Prov:ISHAAN RODNEY MD 12/19/16 Loperamide Hcl* (Imodium*) 2 Mg Capsule, 2 MG PO .AFTER EA LOOSE BM Y for DIARRHEA, #10 TAB Prov:ISHAAN RODNEY MD 12/19/16 Reported Medications Loratadine* (Loratadine*) 10 Mg Tablet, 10 MG PO DAILY, #30 TAB 12/20/16 Allergies Allergies: Coded Allergies: No Known Allergy (Unverified , 02/22/17) PMhx/Soc History of Surgery: No Anesthesia Reaction: No Hx Neurological Disorder: No Hx Respiratory Disorders: Yes (asthma,bronchitis) Hx Cardiac Disorders: No Hx Psychiatric Problems: No Hx Miscellaneous Medical Probl: No Hx Alcohol Use: No Hx Substance Use: No Hx Tobacco Use: No FmHx Family History: No diabetes Physical Exam Vitals Vital Signs Date Time Temp Pulse Resp B/P Pulse Ox O2 Delivery O2 Flow Rate FiO2 05/27/17 15:39 98.1 67 18 132/75 98 Physical Exam INITIAL VITAL SIGNS: Reviewed by me GENERAL: Awake, alert and oriented x 4, well appearing, nontoxic, speaking in full sentences. No acute distress HEAD: Atraumatic NECK: Supple. No masses. Full range of motion. No meningismus. No midline tenderness. EYES: EOMI. PERRL. Bilateral periorbital swelling worse on the right, no erythema, no warmth, patient has full range of motion in both eyes without any ptosis, extraocular movements intact without nystagmus, able to differentiate between number of fingers, visual acuity unable to be assessed secondary to patient does not have her glasses however states patient is normal for her and no changes to her vision. Audie-Pen readings on the right eye were 23 on the left eye also 23 THROAT: No tonilar erythema or edema. No exudates. Uvula midline. No kissing tonsils. RESPIRATORY: Clear to auscultation bilaterally. Symmetric chest wall rise. No wheezing or rales. No accessory muscle use. CV: Regular rate and rhythm. No murmurs, rubs, or gallops. Procedures/MDM 61-year-old female nondiabetic presents with periorbital swelling. Patients is alert, oriented, well appearing, and in no distress with normal vital signs. There is no fever, tachycardia, or tachypnea. It does not appear to be infectious in nature. She has full range of motion in the eyes without any limitations. Audie-Pen readings were 23 bilaterally. Conjunctiva and eye exam is normal. I doubt any ocular in emergency including globe injury, retinal detachment, central retinal artery occlusion, acute angle-closure glaucoma, cavernous sinus thrombosis, uveitis, iritis, or any other emergent cause of her symptoms. I reviewed the chart with Dr. Rodney and we agree she is scheduled for outpatient management with close follow with primary care. Patient was discharged with short course of prednisone as well as Claritin as I think her symptoms are most likely related to her URI and possible allergic symptoms. Patient counseled regarding my diagnostic impression and care plan. Prior to discharge all questions answered. Pt agrees with treatment plan and understands strict return precautions. Pt is instructed to follow up with primary care provider within 24-48 hours. Precautionary instructions provided including instructions to return to the ER if not improving or for any worsening or changing symptoms or concerns. Departure Diagnosis: Primary Impression: Periorbital swelling Condition: Stable GRISEL STACY PA-C May 27, 2017 19:17
== END 2017-05-27 19:14 | disposition home or self-care (01) ==
LOC: FTE 15:35 → E/R 19:14
DX: R60.0 Localized edema (principal); J45.909 Unspecified asthma, uncomplicated
CPT/HCPCS: 99282